=== PATIENT | male | born 1945 | race Caucasian/White ===

== ENCOUNTER 2020-06-09 20:12 | Emergency (ER) | payer MEDICARE, MEDICAID ==
[~2020-06-09] VITALS: Ht 170.2 cm; Wt 94.0 kg
[2020-06-09] MEDS ORDERED: ACETAMINOPHEN 325MG TABLET PO ONE (21:15)
[2020-06-09] MEDS ORDERED: LIDOCAINE 5% PATCH TOP SCH (21:30)
[2020-06-09] MEDS ORDERED: GABAPENTIN 100MG CAPSULE PO ONE (21:30)
[2020-06-09] MEDS ORDERED: CYCLOBENZAPRINE 10MG TABLET PO ONE (21:30)
[2020-06-09 22:43] LABS: CLARITY URINE CLEAR (CLEAR); COLOR URINE YELLOW (YELLOW); KETONES URINE TRACE (NEGATIVE); LEUKOCYTE ESTERASE URINE NEGATIVE (NEGATIVE); NITRITE URINE NEGATIVE (NEGATIVE); OCCULT BLOOD URINE NEGATIVE (NEGATIVE); PROTEIN URINE TRACE (NEGATIVE); SPECIFIC GRAVITY URINE 1.026 (1.005-1.030)
[2020-06-09 22:43] LABS: BASOPHILS % 0.6 % (0.0-2.0); EOSINOPHILS % 2.4 % (0.0-5.0); HEMATOCRIT. 39.6 % (42.0-52.0); HEMOGLOBIN. 12.9 g/dL (14.0-18.0); LYMPHOCYTES % 22.4 % (20.0-50.0); MEAN CORPUSCULAR HEMOGLOBIN 28.6 pg (28.0-32.0); MEAN CORPUSCULAR VOLUME 88.1 fL (80.0-94.0); MEAN PLATELET VOLUME 9.1 fl (7.4-10.4); MONOCYTES % 8.7 % (2.0-8.0); NEUTROPHILS % 65.9 % (40.0-76.0); PLATELET 214 x1000/uL (130-400); RED CELL DISTRIBUTION WIDTH 12.8 % (11.6-14.6)
[2020-06-09 22:46] LABS: CHLORIDE 103 mEq/L (98-107)
[2020-06-10] MEDS ORDERED: T3 PO (01:23)
[2020-06-10] MEDS ORDERED: LIDO700A15 TP (01:26)
[2020-06-10] MEDS ORDERED: CYCL25PO21 MT (01:26)
[2020-06-10 02:15] VITALS: BP 151/80
[2020-06-12] MEDS ORDERED: GABA-529 PO (05:29)
[2020-06-12] MEDS ORDERED: ATOR10TA69 PO (05:29)
[2020-06-12] MEDS ORDERED: FURO20TA4 PO (05:29)
[2020-06-12] MEDS ORDERED: GLIP5TAB12 PO (05:29)
[2020-06-12] MEDS ORDERED: PENT400T16 PO (05:29)
[2020-06-12] MEDS ORDERED: ATEN100T PO (05:29)
[2020-06-12] MEDS ORDERED: ASPI-1497 PO (05:29)
[2020-06-12] MEDS ORDERED: MV-M1TAB19 PO (05:29)
[2020-06-12] MEDS ORDERED: METF-416 PO (05:29)
[2020-06-12] MEDS ORDERED: [UNRECOGNIZED DRUG - OTHER] PO (05:29)
[2020-06-12] MEDS ORDERED: VITAMIN D PO (05:29)
== END 2020-06-10 02:30 | disposition home or self-care (01) ==
LOC: ER 20:12
DX: M54.2 Cervicalgia (principal); G62.9 Polyneuropathy, unspecified; E11.9 Type 2 diabetes mellitus without complications; E78.00 Pure hypercholesterolemia, unspecified; I25.2 Old myocardial infarction; I10 Essential (primary) hypertension; Z98.890 Other specified postprocedural states
CPT/HCPCS: 36415; 71045; 80053; 81003; 85025; 93005; 99285